=== PATIENT | female | born 1975 | race Caucasian/White ===

== ENCOUNTER → 2023-12-13 11:14 | Outpatient (REF) | payer OTHER, SELFPAY ==
[2023-12-13 12:16] LABS: % Basophils 0.7 % (0-2); % Eosinophils 3.4 % (0-6); % Immature Granulocytes 0.4 % (0-0.5); % Lymphocytes 20.5 % (20.5-51.1); Absolute Basophils 0.1 10^3/uL (0-0.2); Absolute Eosinophils 0.3 10^3/uL (0-0.7); Absolute Lymphocytes 1.7 10^3/uL (1.2-3.4); Absolute Monocytes 0.5 10^3/uL (0.1-0.6); Absolute Neutrophils 5.7 10^3/uL (1.4-6.5); Hematocrit 42.2 % (37.0-47.0); Hemoglobin 14.4 g/dL (12.0-16.0); Mean Corp Hgb Conc. 34.1 g/dL (33.0-37.0); Mean Corpuscular Hgb 29.9 pg (27.0-31.0); Mean Corpuscular Volume 87.7 fL (81.0-99.0); Mean Platelet Volume 9.9 fL (7.4-10.4); Nucleated Red Blood Cells % 0 %; Platelet Count 294 10^3/uL (130-400); Red Blood Cell Count 4.81 10^6/uL (4.20-5.40); Red Cell Dist. Width 12.5 % (11.5-14.5); White Blood Cell Count 8.3 10^3/uL (4.8-10.8)
[2023-12-13 12:31] LABS: ALT (SGPT) 19 U/L (0-35); AST (SGOT) 22 U/L (14-36); Albumin 4.9 g/dl (3.5-5.0); Alkaline Phosphatase 63 U/L (38-126); Blood Urea Nitrogen 14 mg/dl (7-17); Calcium 9.7 mg/dl (8.4-10.2); Carbon Dioxide 27 mmol/L (22-30); Chloride 104 mmol/L (98-107); Glucose 96 mg/dl (70-99); Potassium 4.3 mmol/L (3.5-5.1); Sodium 136 mmol/L (135-145); Total Bilirubin 0.6 mg/dl (0.2-1.3); Total Protein 7.9 g/dl (6.3-8.2); eGFR > 60.00
== END ==
LOC: RAD 11:14
PROVIDERS: ATTENDING PHYSICIAN Registered Nurse
DX: R10.31 Right lower quadrant pain (principal)
CPT/HCPCS: 36415; 74177; 80053; 85025; Q9967

== ENCOUNTER 2023-12-13 17:55 | Day surgery (SDC) | payer OTHER, SELFPAY ==
[2023-12-13] VITALS (7 sets, daily range): BP systolic 103–151; BP diastolic 56–115; BMI 27.5; BMI 26.9
--- NOTE | 2023-12-13 16:02 | ED.GENMED ---
History of Present Illness
General
Chief Complaint: Abdominal Pain
Source: patient
Exam Limitations: none
Time Seen by Provider: 12/13/23 15:36
Nursing documentation reviewed up to this point in time: agreed with
Travel History
Have you had any contact with someone who has COVID-19?: No
Do you have any symptoms of coronavirus? Fever > 100 degrees, chills, cough, shortness of breath, sore throat, loss of taste or smell, muscle aches, or headache?: No
History of Present Illness
History of Present Illness:
The patient is a pleasant 48-year-old female with a past medical history of ankylosing spondylitis and endometriosis who presents with several days of abdominal pain that has localized into her right lower abdomen. Patient reports nausea but no
vomiting. She denies fever. She denies vaginal bleeding and discharge. She reports she was evaluated today by her primary care doctor who sent her for a CAT scan. She was then sent to the ED from radiology after her CAT scan suggested acute
appendicitis.
Past History
Past History
ED Past Medical History: GERD and Other (Ankylosing spondylitis, endometriosis)
Social History
Tobacco: Non-smoker
Alcohol: None
Drug: None
Personal:
Living: with family
Employment: Other
Family History
Family History: Other
Review of Systems
Review of Systems
Allergies reviewed?: Yes
All Other Systems: ROS reviewed and negative except as documented in HPI and ROS
Constitutional: Reports no symptoms
EENT: Reports no symptoms
Respiratory: Reports no symptoms
Cardiac: Reports no symptoms
ABD/GI: Reports abdominal pain, nausea and anorexia
: Reports no symptoms
Musculoskeletal: Reports no symptoms
Skin: Reports no symptoms
Neurological: Reports no symptoms
Endocrine: Reports no symptoms
Hematologic/Lymphatic: Reports no symptoms
Psychiatric: Reports no symptoms
Phy Exam
Physical Exam
Physical Exam:
Physical Exam
General: no apparent distress, not acutely ill. Well appearing
Neck: supple. no meningeal signs. normal psoterior pharynx
Heart: s1/s2 regular rate and rhythm, no murmur. equal radial pulses.
Lungs: no acute respiratory distress. clear bilaterally
Abdomen: normal bowel sounds. Soft throughout. Right lower quadrant tenderness. No rebound or guarding
Neuro: alert and oriented. no focal neurological deficits
Skin: no rash
Psychiatric: well kept. interactive and cooperative
Extremities: no edema. no calf tenderness. negative homans. good distal pulses
Course
Orders/Labs/Results
Orders:
Orders
12/13/23 Dinner
NPO
Allow oral meds: Yes
Allow clear liquids: No
12/13/23 15:48
Test Result ONCE
12/13/23 16:10
Complete Blood Count/With Diff Urgent
Comprehensive Metabolic Panel Urgent
HCG, Serum Qualitative Screen Urgent
12/13/23 16:14
Consult Surgery [SURGICAL CONSULT] Urgent
Consulting Provider: Lui Cuba
Was physician already notified: Yes
Reason for consult: acute appy
12/13/23 16:24
Ampicillin/Sulbactam 3 G [Unasyn] 3 gm 0.9% Sodium Chloride 100 ml [Nss] 100 ml IV NOW
12/13/23 16:48
Meperidine [Demerol] 12.5 mg IV PACU-Q5MPRN PRN
Morphine Sulfate 2 mg IV PACU-Q5MPRN PRN
Morphine Sulfate 4 mg IV PACU-Q5MPRN PRN
Ondansetron Injectable [Zofran] 4 mg IV PACU-ONCEPRN PRN
Prochlorperazine [Compazine] 5 mg IV PACU-ONCEPRN PRN
Notify MD As Directed
Notify physician if: for SDS patients with known or suspected sleep obstructive sleep apnea, monitor in the
PACU.
Notify MD for any apneic/desaturation episodes
O2 Therapy [RESP] Urgent
Titrate/Wean O2 to maintain O2 sat greater than (%): 92
Special Instructions: -Provide supplemental oxygen to achieve O2 sat of 92% or greater.
-After 15 min, may wean O2 and discontinue if patient is able to maintain O2 sat of 92%
or greater during recovery period.
If patient is a discharge home, without oxygen therapy, notify anestheiologist if
unable to maintain O2 SAT of 92% or greater on room air for MD clearance.
12/13/23 16:57
Admit Patient As Directed
Co-Sign Provider:
Level of Care: Post Proc/Surg Recovery
Assign to:: Medical/Surgical
Physician / Group: [facility]/General surgery
Diagnosis: appendicitis
Reason for Overnight Stay: Standard of Care
Code Status As Directed
Resuscitation Status: Full Code
Acetaminophen [Tylenol] 650 mg PO Q4HPRN PRN
Ketorolac [Toradol] 10 mg IV Q6HPRN PRN
Morphine Sulfate 2 mg IV Q4HPRN PRN
Morphine Sulfate 4 mg IV Q4HPRN PRN
Ondansetron Injectable [Zofran] 4 mg IV Q6HPRN PRN
Oxycodone [Roxicodone] 5 mg PO Q4HPRN PRN
Activity As Directed
Activity Level: Out of Bed-Early Mobility
Pneumatic Compression Sleeves As Directed
Type: Knee high
Vital Signs As Directed
Frequency: Per unit guidelines
DX Deep Vein Thrombosis Video Routine
12/13/23 17:00
Normosol (Mult Electrolytes) [Normosol-R] 1,000 ml IV PER PROTOCOL
12/14/23 08:00
Famotidine [Pepcid] 20 mg PO DAILY
12/13/23 16:10
12/13/23 16:10
Vital Signs
Initial and Last Documented VS:
Initial Vital Signs
Temp Pulse Resp BP Pulse Ox
98.0 F 86 16 146/96 98
12/13/23 15:29 12/13/23 15:29 12/13/23 15:29 12/13/23 15:29 12/13/23 15:29
Last Documented Vital Signs
Temp Pulse Resp BP Pulse Ox
98.0 F 86 16 146/96 98
12/13/23 15:29 12/13/23 15:29 12/13/23 15:29 12/13/23 15:29 12/13/23 15:29
MDM/Problems Addressed
Differential Diagnosis Includes:
Acute appendicitis, acute diverticulitis, ovarian cyst
MDM/Problems Addressed:
Patient presents with acute right lower abdominal pain
Chronic conditions affecting care:
Endometriosis
Acute Exacerbation and/or Progression of Chronic Illness:
Pain can represent acute exacerbation of endometriosis
*Radiology
Radiology exam reviewed: radiology read reviewed
*Pulse Oximetry
Patient hypoxic: no
*EKG
Interpreted by ED Provider?: NA
*Home Organizer Interpretation
Rate: Home Organizer- N/A
*Critical Care Note
Total Time (30-74mins, 75-104mins- exclusive of procedures): Not Applicable
Data Reviewed
Review of Other/Old Records Reveals: Testing (No significant abnormality seen on cardiac echo from 2021)
Patient Management
Discussion with other providers: Other (Dr. Cuba from general surgery)
Escalation/DeEscalation of care consider admission/obs:
Surgical team has agreed to admit the patient and will take her to the operating room tonight.
ED Attending Note
-
Portions of this chart may have been created with voice recognition software.� Occasional wrong word or��sound alike� substitutions may have occurred due to the inherent limitations of voice recognition software.
Discharge Plan
Departure
Patient Disposition: OR
Date of Disposition: 12/13/23
Time of Disposition: 16:42
Presentation/result/management discussed w/ accepting MD/DO: Dr Lui Cuba
Patient with high blood pressure during this ER visit?: Yes
Condition: Good
Discharge Problem:
Acute appendicitis
Prescriptions:
No Action
famotidine [Pepcid] 20 mg Tablet
20 mg PO DAILY
Interventions
Interventions:
*Risk Screen - Suicide Last Done: 12/13/23 16:23
*General Assessment Last Done: 12/13/23 16:23
*Neglect/Abuse Screening Last Done: 12/13/23 16:23
*ED COVID-19 Vaccine History Last Done: 12/13/23 15:29
YK-Pygzta-Rkkbfkclty Assessment Last Done: 12/13/23 16:23
[2023-12-13 16:17] LABS: % Basophils 0.5 % (0-2); % Eosinophils 2.7 % (0-6); % Immature Granulocytes 0.1 % (0-0.5); % Lymphocytes 23.5 % (20.5-51.1); % Monocytes 5.4 % (1.7-9.3); % Neutrophils 67.8 % (42.2-75.2); Absolute Basophils 0.1 10^3/uL (0-0.2); Absolute Eosinophils 0.3 10^3/uL (0-0.7); Absolute Lymphocytes 2.2 10^3/uL (1.2-3.4); Absolute Monocytes 0.5 10^3/uL (0.1-0.6); Absolute Neutrophils 6.3 10^3/uL (1.4-6.5); Hematocrit 40.8 % (37.0-47.0); Hemoglobin 13.6 g/dL (12.0-16.0); Mean Corp Hgb Conc. 33.3 g/dL (33.0-37.0); Mean Corpuscular Hgb 29.7 pg (27.0-31.0); Mean Corpuscular Volume 89.1 fL (81.0-99.0); Mean Platelet Volume 9.8 fL (7.4-10.4); Nucleated Red Blood Cells % 0 %; Platelet Count 279 10^3/uL (130-400); Red Blood Cell Count 4.58 10^6/uL (4.20-5.40); Red Cell Dist. Width 12.4 % (11.5-14.5); White Blood Cell Count 9.2 10^3/uL (4.8-10.8)
[2023-12-13 16:34] LABS: HCG, Serum Qualitative Screen Negative
[2023-12-13] MEDS: UNASYN IV (16:34)
[2023-12-13 16:38] LABS: ALT (SGPT) 17 U/L (0-35); AST (SGOT) 19 U/L (14-36); Albumin 4.4 g/dl (3.5-5.0); Alkaline Phosphatase 68 U/L (38-126); Blood Urea Nitrogen 13 mg/dl (7-17); Calcium 9.5 mg/dl (8.4-10.2); Carbon Dioxide 29 mmol/L (22-30); Chloride 100 mmol/L (98-107); Estimated Creatinine Clearance 100 ml/min; Glucose 91 mg/dl (70-99); Potassium 4.5 mmol/L (3.5-5.1); Sodium 137 mmol/L (135-145); Total Bilirubin 0.5 mg/dl (0.2-1.3); Total Protein 7.2 g/dl (6.3-8.2); eGFR > 60.00
--- NOTE | 2023-12-13 16:43 | HPS.HSE ---
Addendum entered and electronically signed by Lui Cuba MD 12/13/23 17:47:
I saw and examined the patient independently.
The Background Investigator's note was reviewed and I agree with the note, assessment and plan except where noted below.
Comment: This is a 48-year-old female who presents with a 5-day history of worsening right lower quadrant pain. Exam, imaging, lab work all consistent with acute appendicitis.
N.p.o., IV fluids, IV antibiotics.
Will plan for laparoscopic appendectomy today.
Risks/Benefits/Alternatives, expected postoperative course and possible complications (bleeding, infection, injury to surrounding structures, acute/chronic pain) discussed at length. Patient wishes to proceed with surgery. All questions answered.
Consent obtained.
I spent roughly 55 minutes in total for the care of this patient today including direct patient care and counseling, reviewing labs, imaging, coordination of care, as well as documentation.
Original Note:
Family Physician
-
Family Physician: Lucretia Dhillon MD
Chief Complaint
-
abdominal pain
History of Present Illness
This is a 48 yo female with a history of ankylosing spondylosis (on no active meds), endometriosis with open removal of bilateral endometriomas with right and partial left oophorectomies via low transverse incision, and laparoscopic left
tubal repair who presents from the outpatient radiology department to the ED with abnormal abdominal imaging. She began having RLQ discomfort intermittently about 5 days ago which gradually worsened and became persistent causing her to present to
her PCP this morning for evaluation. She was sent for CT imaging which she completed this afternoon with findings of acute appendicitis appreciated. She denies fevers but has had some intermittent chills at home. She denies nausea or vomiting but
has had a poor appetite since onset of pain. She notes no diarrhea or constipation and no changes to her voiding pattern.
Medical History
Past Medical History
Past Medical History: Reports Other (ankylosing spondylosis (on no active meds), endometriosis)
Past Surgical History: Reports Gynocological (open removal of bilateral endometriomas with right oophorectomy and partial left oophorectomy via low transverse incision, and laparoscopic left tubal repair)
Social History
Tobacco: Non-smoker
Alcohol: None
Personal:
Living: With Family
Family History
Family History: Not pertinent
Allergies / Home Medications
Allergies reflects when Allergies were last updated in [employer].
Home Medications with original date entered in [employer]
Allergy/Medication List:
Medication Instructions Recorded Confirmed Type
famotidine 20 mg tablet (Pepcid) 20 mg PO DAILY 12/13/23 12/13/23 History
Patient Allergies
Allergy/AdvReac Type Severity Reaction Status Date / Time
hydromorphone [From Dilaudid] Allergy respiratory Verified 12/13/23 16:51
distress
Review of Systems
-
History Source: Patient
A 12 point ROS was completed and negative except as noted: Yes
Physical Exam
Vital Signs
Vital Signs
Temp Pulse Resp BP Pulse Ox
98.0 F 86 16 146/96 98
12/13/23 15:29 12/13/23 15:29 12/13/23 15:29 12/13/23 15:29 12/13/23 15:29
Physical Exam
General: Well Developed and No Apparent Distress
HEENT: Moist mucous membranes
Respiratory: Non Labored Respirations
GI: Soft, Non Distended, Tender (RLQ) and Other (no rebound/gaurding)
Skin: Warm and Dry
Neuro: Awake, Alert and AO x 3
Psych: Calm
Laboratory Results
-
12/13/23 16:10
12/13/23 16:10
Laboratory Results
Total Bilirubin 0.5 mg/dl (0.2-1.3) 12/13/23 16:10
AST 19 U/L (14-36) 12/13/23 16:10
ALT 17 U/L (0-35) 12/13/23 16:10
Alkaline Phosphatase 68 U/L (38-126) 12/13/23 16:10
Data Reviewed
-
CT Scan: Image Personally Visualized and interpreted, Report Reviewed by me, Discussed with Physician and Discussed with Patient
Lab Data: Labs Reviewed by me, Discussed with Physician and Discussed with Patient
Old Records: Reviewed
Impression/Plan
-
IMPRESSION:
48 yo female with a history of ankylosing spondylosis, endometriosis with open removal of bilateral endometriomas with right and partial left oophorectomies via low transverse incision, and laparoscopic left tubal repair who presents from
the outpatient radiology department to the ED with acute appendicitis noted on CT imaging. She endorses RLQ for about 5 days with poor appetite with RLQ tenderness noted on exam. AFVSS, no leukocytosis.
PLAN:
Keep NPO for tentative OR later tonight for laparoscopic appendectomy
IV Unasyn being given in ED
IVF while NPO
Analgesics as needed
--- NOTE | 2023-12-13 17:47 | W.SUR.PREOP ---
Pre-Operative Surgical Note
-
I have examined this patient prior to the performance of the scheduled procedure.
The patient's condition is unchanged from the time of the current History and
Physical and the patient is able to undergo the scheduled procedure.
--- NOTE | 2023-12-13 18:57 | W.IMMPOSTOP ---
Surgical Immed Post Op Note
-
Primary Surgeon: Lui Cuba MD
Assisting Surgeon: None
Pre-op Diagnosis: Acute appendicitis
Post-op Diagnosis: Same
Procedure Performed: Laparoscopic appendectomy
Anesthesia Type: General
Specimen / Cultures: Appendix
Estimated Blood Loss: 7 cc
Complications: None
Operative Findings: Acutely inflamed, nonsuppurative tip appendicitis. Small bowel to adjacent small bowel adhesion roughly 5 cm from the ileocecal valve, causing the small bowel to fold on itself. This was left intact as there did not appear to
be any obstructive point here. The appendix was plastered to the backside of the mesentery of this area of small bowel.
POST OP PLAN:
Imaging: None
Labs: Routine AM
Diet: Advance to Regular as tolerated
Analgesia: Tylenol 650mg q6 Leah, [place] 5mg q6 PRN, Dilaudid 0.5mg q2h PRN
Neuro/vascular checks: q4h
AC/AP: Hold Therapeutic AC, Ok for DVT PPx
Activity: Ad Geetha
Wound/Incisions/Drains: Routine
Abx: Can continue antibiotics while admitted, no antibiotics required on discharge.
Dispo: RNF, anticipate discharge home tomorrow.
--- NOTE | 2023-12-13 19:01 | OR.RPT ---
Operative Report
Operative Report
Patient Name: Ruchi Corral
: 1975
Date of Operation: 12/13/2023
Preoperative Diagnosis: Acute Appendicitis
Postoperative Diagnosis: Same
Procedure(s):
Laparoscopic Appendectomy
Surgeon(s):
Dr. Cuba
Locomotive Engineer(s): None
Anesthesia: General
Estimated Blood Loss: 7 cc
Urine Output: None
Drains/Lines/Implants: None
Specimens:
1. Appendix
HPI/Surgical Indications:
This is a 48-year-old female who presents with a 4-5 day history of abdominal pain. She had an outpatient CT abdomen pelvis that was performed which was concerning for appendicitis and she was referred to our emergency department. Exam, labs and
imaging are consistent with acute appendicitis. Risks/Benefits/Alternatives were discussed at length, and the patient agreed to proceed with surgery.
Operative Findings: Acutely inflamed, nonsuppurative tip appendicitis. Small bowel to adjacent small bowel adhesion roughly 5 cm from the ileocecal valve, causing the small bowel to fold on itself. This was left intact as there did not appear to
be any obstructive point here. The appendix was plastered to the backside of the mesentery of this area of small bowel.
Procedure Description:
The patient was placed in the supine position, with the left arm tucked, and general anesthesia was induced. The abdomen was prepared and draped in a sterile fashion so as to expose the entire abdomen. A surgical time out was taken. Abdominal access
was obtained with a 5mm infra-umbilical Veress entry. After confirming no injury on entrance, two additional 5mm ports were placed in the suprapubic area just off midline and in the left lower quadrant. The patient was placed in Trendelenberg with
the right slightly up . The appendix was identified and a window was created in the mesoappendix. The appendix was inflamed at the tip but not perforated. It was somewhat adhered to the underside of the small bowel mesentery. The small bowel was
run from the ligament of Treves in a retrograde manner and there was a small area of small bowel to small bowel adhesions were it was folded on itself however there was no obstructive process. The adhesions felt fairly dense and I did not think
that I could ligate them easily without some risk of serosal injury. Using a harmonic energy device, the meso appendix was divided. The base of the appendix appeared uninvolved and was ligated/divided using two 0-PDS Endoloops and the energy
device. The appendix was placed in a specimen retrieval bag. There was no gross contamination in the pelvis otherwise looked normal. Hemostasis was confirmed and the ports were removed under visualization. The specimen was passed off the field.
The umbilical port was closed with 0-PDS and the skin for all three ports was closed with interrupted monocryls and covered with dermabond. The patient was awoken from anesthesia in good condition and transported to the recovery area.
I was the attending physician and performed the procedure with no assistance. I was present for all portions of the case
Lui Cuba MD
--- NOTE | 2023-12-14 03:47 | PTCARENOTE ---
2030 late entry. Received patient from PACU via stretcher. AAOx3. patient oriented to room and floor [facility] dental surgeon [place]. Patient tolerated clear liquids, patient denies pain 0/10. VSS
[2023-12-14 04:59] VITALS: BP 96/52
[2023-12-14 07:43] VITALS: BP 118/68
--- NOTE | 2023-12-14 07:53 | W.DS.TRANS ---
DC Summary - Food Stand Manager
-
Discharge Instructions:
Discharge Diagnosis/Procedures Acute appendicitis. Laparoscopic appendectomy.
Diet No restrictions
Activity No strenuous activity
Driving Restrictions As prior to admission
Bathing Restrictions OK to Shower
Instructions:
Stand-Alone Forms:
Changes to Home Medications: No
Discharge Medications:
DC Medications w/original date entered in [employer]
famotidine 20 mg tablet (Pepcid) 20 mg PO DAILY 12/13/23
acetaminophen 325 mg tablet 650 mg PO Q4HPRN PRN mild pain #1 tab 12/14/23
ibuprofen 200 mg tablet 400 - 600 mg PO Q6HPRN PRN moderate pain #1 tab 12/14/23
Home Medication Changes
Pending Results: No
--- NOTE | 2023-12-14 07:53 | W.PN.GS2 ---
Today's Communication / Plan
-
-- DC today
Assessment / Plan
-
Patient is a 48 yo F POD#1 s/p laparoscopic appendectomy
Recovering well. No postoperative concerns.
-- Regular diet
-- Pain control: Tylenol, Toradol, Oxycodone
-- HLIV
-- No need for abx on DC
-- Home H2 ritesh
-- Lovenox for DVT
-- DC home
Subjective Data
-
Date of Service: December 14, 2023
No complaints. Pain well-controlled. No nausea or vomiting. No fevers. Ambulating.
Objective Data
-
Intake and Output
12/13/23 12/14/23 12/15/23
06:59 06:59 06:59
Intake Total 960 / 960
Balance 960 / 960
Intake:
Oral fluids 960 / 960
Other:
Number of approximated MODERATE 1
amounts of urine
Vital Signs
Temp Pulse Resp BP Pulse Ox
97.8 F 78 16 118/68 98
12/14/23 07:43 12/14/23 07:43 12/14/23 07:43 12/14/23 07:43 12/14/23 07:43
Lab Results
12/13/23 16:10
12/13/23 16:10
Calcium 9.5 mg/dl (8.4-10.2) 12/13/23 16:10
Total Bilirubin 0.5 mg/dl (0.2-1.3) 12/13/23 16:10
AST 19 U/L (14-36) 12/13/23 16:10
ALT 17 U/L (0-35) 12/13/23 16:10
Alkaline Phosphatase 68 U/L (38-126) 12/13/23 16:10
Total Protein 7.2 g/dl (6.3-8.2) 12/13/23 16:10
Albumin 4.4 g/dl (3.5-5.0) 12/13/23 16:10
Physical Exam
-
Gen: NAD
Abd: soft, minimal tenderness, ND, incisions c/d/i - ecchymosis at LLQ, no erythema or drainage
[2023-12-14] MEDS: TYLENOL 650 MG PO (08:07)
[2023-12-14] MEDS: PEPCID 20 MG PO (08:07)
--- NOTE | 2023-12-14 09:15 | CM ---
Alert awake oriented patient who lives with her Arjun who lives in a 2 story home with 3 steps to enter and 14 steps to bed/bathroom .
She is independent in driving and in all activities of daily living.Offered VN she declined.Her will drive her home.
No adaptive devices
Never had VN/SNF
Pharmacy [facility]
PCP Dr Dhillon
PLAN Home declined VN
== END 2023-12-14 10:27 | disposition home or self-care (01) ==
LOC: SDS 17:55
PROVIDERS: ATTENDING PHYSICIAN Surgery; EMERGENCY PHYSICIAN Emergency Medicine; FAMILY PHYSICIAN Family Medicine
DX: K38.8 Other specified diseases of appendix (principal)
CPT/HCPCS: 44970; 88304; 80053; 84703; 85025; 96365; 99285

== ENCOUNTER → 2024-01-20 08:43 | Outpatient (REF) | payer OTHER, SELFPAY | LOC: HWRAD 08:43 | PROVIDERS: ATTENDING PHYSICIAN Family Medicine | DX: N83.9 Noninflammatory disorder of ovary, fallopian tube and broad ligament, unspecified (principal) | CPT/HCPCS: 76856 ==

== ENCOUNTER → 2024-03-20 10:54 | Outpatient (REF) | payer OTHER, SELFPAY | LOC: DHSLP 10:54 | PROVIDERS: ATTENDING PHYSICIAN Family Medicine | DX: G47.33 Obstructive sleep apnea (adult) (pediatric) (principal) | CPT/HCPCS: 95806 ==

== ENCOUNTER → 2024-06-20 14:59 | Outpatient (REF) | payer OTHER, SELFPAY | LOC: WDC 14:59 | PROVIDERS: ATTENDING PHYSICIAN Family Medicine | DX: Z12.31 Encounter for screening mammogram for malignant neoplasm of breast (principal) | CPT/HCPCS: 77063; 77067 ==

== ENCOUNTER → 2024-08-08 08:23 | Outpatient (REF) | payer OTHER, SELFPAY | LOC: HWRAD 08:23 | PROVIDERS: ATTENDING PHYSICIAN Family Medicine; REFERRING PHYSICIAN Student in an Organized Health Care Education/Training Program | DX: N80.9 Endometriosis, unspecified (principal); N83.9 Noninflammatory disorder of ovary, fallopian tube and broad ligament, unspecified | CPT/HCPCS: 76830; 76856 ==

== ENCOUNTER → 2025-06-21 15:59 | Outpatient (REF) | payer OTHER, SELFPAY | LOC: WDC 15:59 | PROVIDERS: ATTENDING PHYSICIAN Student in an Organized Health Care Education/Training Program; FAMILY PHYSICIAN Family Medicine | DX: Z12.31 Encounter for screening mammogram for malignant neoplasm of breast (principal) | CPT/HCPCS: 77063; 77067 ==